=== PATIENT | male | born 1995 | race Caucasian/White ===

== ENCOUNTER 2017-11-15 01:37 | Emergency (ER) | payer SELFPAY ==
[~2017-11-15] VITALS: Ht 182.9 cm; Wt 67.0 kg
[~2017-11-15 01:37] MED LIST: EPP3/2
[2017-11-15 01:41] VITALS: Ht 182.9 cm; Wt 67.0 kg
[2017-11-15] MEDS ORDERED: OXYCODONE HCL IR 5 MG TAB (IMMEDIATE RELEASE) PO STA (01:49)
[2017-11-15] MEDS ORDERED: PENI-82 PO (01:56)
--- NOTE | 2017-11-15 01:57 | EMERGENCY ROOM VISIT NOTE ---
History First contact with patient: 01:45 Chief Complaint: DENTAL PAIN Stated Complaint: TOOTH PAIN Nursing Triage Summary: Pt presents with c/o right lower dental pain for a couple months, worse over the past 2-3 days. Denies injury. States he has a cavity, "has been trying to wait it out" and has not contacted a dentist. Took 1000mg Ibuprofen at 2100 History of Present Illness The patient is a 22 year old male who presents to the Emergency Room with complaints of dental pain. Patient has pain at the #30 tooth. This pain has been present for the past 2-3 months. He notes recently over the past 2-3 weeks it has been worse. It is sharp stabbing constant. Worse after eating. No other exacerbating or remitting factors. No fevers. No swelling. He is able to eat and drink. He is able to swallow. He notes he is going to follow- up with his dentist tomorrow. He denies any change in vision or facial swelling. No chest pain or shortness of breath. No nausea vomiting or diarrhea. Review of Systems See HPI for pertinent positives & negatives. A total of 10 systems reviewed and were otherwise negative. Past Medical/Surgical History Medical Problems: (1) Epididymal cyst (2) Epididymal cyst (3) Epididymitis (4) Epididymitis (5) No Known Active Medical Problems Surgical Problems: (1) Unilat Inguinal Hernia Family History Cancer Diabetes mellitus Social History Smoking Status: Never Smoker Alcohol Use: none Drug Use: none Marital Status: single Housing Status: lives with family Occupation Status: student Current/Historical Medications Miscellaneous Medications Epinephrine (Epipen 2-Felipe) Physical Exam Vital Signs Date Time Temp Pulse Resp B/P (MAP) Pulse Ox O2 Delivery O2 Flow Rate FiO2 18 01:41 36.7 75 18 138/82 99 Room Air Physical Exam GENERAL: Sitting up in bed, alert, well appearing, well nourished, no distress, non-toxic, talking in full sentences EYE EXAM: normal conjunctiva. PERRL and EOM's grossly intact. OROPHARYNX: no exudate, no erythema, lips, buccal mucosa, and tongue normal and mucous membranes are moist, tenderness over tooth #30. Several cavities and oropharynx NECK: supple, no nuchal rigidity, no adenopathy, non-tender LUNGS: Clear to auscultation. Normal chest wall mechanics HEART: no murmurs, S1 normal and S2 normal ABDOMEN: abdomen soft, non-tender, normo-active bowel sounds, no masses, no rebound or guarding. UPPER EXTREMITIES: upper extremities are grossly normal. LOWER EXTREMITIES: No pitting edema. NEURO EXAM: Normal sensorium, cranial nerves II-XII grossly intact, normal speech, no gross weakness of arms, no gross weakness of legs. Medical Decision & Procedures ED Course ED COURSE: Vital signs were reviewed and showed normal The patients medical record was reviewed The above diagnostic studies were performed and reviewed. ED treatments and interventions as stated above. 0150: The patient was evaluated in room C9. A complete history and physical examination was performed. Based on the patients age, coexisting illnesses, exam and lab findings the decision to treat as an outpatient was made. The patient remained stable while under my care. The patient appeared well at the time of discharge. Medical Decision Differential diagnoses includes but is not limited to dental fracture, dental carries, and dental abscess. Patient is a 22-year-old male that presents to the ER for dental pain on his # 30 tooth. No surrounding swelling or obvious abscess. No trouble swallowing eating or drinking. Patient is otherwise well-appearing. Vitals are stable. Patient was given 1 dose of OxyIR and penicillin. He was discharged with a prescription for penicillin and instructed to follow-up with his dentist tomorrow. Discussed with Pt concerning signs and symptoms to watch out for. Pt was instructed to follow up with their PCP and discussed with the patient their option to return to the ED at anytime for persistent or worsening symptoms. The appropriate anticipatory guidance and out-patient management, including indications for return to the emergency department, were explained at length to the patient and understood. Impression Primary Impression: Dental caries Departure Information Dispostion Home / Self-Care Condition GOOD Prescriptions Penicillin V Potassium (Veetids) 500 Mg Tab 500 MG PO BID, #20 TAB Prov: Jamie Khan, 11/15/17 Referrals Alli Rivera M.D. (MEDICAL) (PCP) Forms HOME CARE DOCUMENTATION FORM, IMPORTANT VISIT INFORMATION Patient Instructions ED Tooth Pain, My [facility] Additional Instructions Please follow up with your primary care doctor or if you are a student, [facility] with in the next 24 hours. Any worsening of your symptoms, please return to the ED immediately. This includes any fevers greater than 100.4, worsening pain, increased swelling in her throat, trouble swallowing , trouble breathing, unable to eat or drink, or any other concerning signs or symptoms from your standpoint. You were given medications during this visit that will inhibit your ability to drive, operate machinery and work. Please do NOT drive, operate machinery, drink alcohol or work for the next 12hrs. Please take Tylenol or Motrin as needed for pain.
[2017-11-15 02:00] VITALS: BP 138/82; PULSE 75; TEMP 36.7; O2SAT 99
[2017-11-15] MEDS ORDERED: PENICILLIN V POTASSIUM 250 MG TAB PO ONE (02:00)
== END 2017-11-15 02:01 | disposition home or self-care (01) ==
LOC: C.EDB 01:39 → C.EDC 02:01
DX: K02.9 Dental caries, unspecified (principal); Z83.3 Family history of diabetes mellitus